=== PATIENT | female | born 1980 | race Two or more races ===

== ENCOUNTER → 2024-09-13 | Outpatient (CLI) | payer BC, SELFPAY ==
--- NOTE | 2024-09-13 09:00 | XR_ITS ---
Examination: Breast ultrasound, unilateral, left complete Date and time of exam: September 13, 2024 at 0900 hours INDICATIONS: Palpable left breast lump in the 12 to 2:00 position note is beginning 3 months ago, family history breast cancer Technique: Real-time moore scale ultrasonographic imaging performed left breast including all 4 quadrants as well as nipple retroareolar and axillary region. Findings: Multiple benign breast cysts, the largest in the 12:00 position 3.4 x 1.7 x 3.0 cm No solid nodules IMPRESSION: BI-RADS Category 2: Benign findings
--- NOTE | 2024-09-13 09:30 | XR_ITS ---
Examination: Diagnostic digital mammography, unilateral, left Computer aided detection 3-D breast Tomosynthesis, unilateral Date and time of exam: September 13, 2024 0842 hours INDICATIONS: Family history breast cancer, patient states palpable lumps in the right breast and left breast Technique: Nonmagnified MLO, CC views of the left breast have been obtained, reconstructed from 3-D Tomosynthesis images. R2 computer aided detection program utilized for evaluation of suspicious masses and/or abnormal calcifications. 3-D Tomosynthesis images obtained. Findings: The breast is heterogeneously dense, which may obscure small masses Spot compression views demonstrate circumscribed mass 23 mm in the upper outer left breast Impression: BI-RADS Category 2: Benign findings Circumscribed 23 mm mass left breast likely corresponding to left breast cyst on left breast sonogram today
== END | disposition home or self-care (01) ==
PROVIDERS: PCP Obstetrics & Gynecology; Referring Provider Obstetrics & Gynecology; Visit Provider Obstetrics & Gynecology
DX: R92.322 Mammographic fibroglandular density, left breast (principal); N63.21 Unspecified lump in the left breast, upper outer quadrant
CPT/HCPCS: 76641; 77061; 77065; G0279